=== PATIENT | female | born 1965 | race Hispanic/Latino ===

== ENCOUNTER → 2017-01-04 | Outpatient (CLI) | payer OTHER | END | disposition home or self-care (01) | LOC: LAB.O 15:05 | PROVIDERS: ATTEND Internal Medicine Rheumatology | DX: Z79.899 Other long term (current) drug therapy (principal); M32.10 Systemic lupus erythematosus, organ or system involvement unspecified ==

== ENCOUNTER 2017-02-26 06:30 | Emergency (ER) | payer OTHER ==
[2017-02-26 06:47] VITALS: TEMP 97.1
[2017-02-26] MEDS ORDERED: ONDANSETRON INJ 4 MG/2 ML VIAL IV ONE (06:51)
[2017-02-26] MEDS ORDERED: BUTORPHANOL TARTRATE 2 MG/ML VIAL IV ONE (06:51)
[2017-02-26] MEDS ORDERED: ONDANSETRON INJ 4 MG/2 ML VIAL ONE (06:53)
[2017-02-26] MEDS ORDERED: BUTORPHANOL TARTRATE 2 MG/ML VIAL ONE (06:54)
--- NOTE | 2017-02-26 07:15 | CT ---
Study: CT of the Head. Indication: severe headache Technique: Axial CT images of the head were acquired without intravenous contrast. Comparison: MRI brain May 30, 2011. Findings: No CT evidence of acute ischemia, acute hemorrhage, mass, mass effect, midline shift, or extra-axial fluid collection. Ventricles are normal in configuration without hydrocephalus. Brain parenchyma demonstrates a normal appearance for patient age. Paranasal sinuses are adequately aerated. Mastoid air cells are adequately aerated. Osseous structures and soft tissues are unremarkable. Impression: 1. No CT evidence of acute intracranial abnormality. Electronically signed by: Manav Cooper MD 02/26/2017 7:14 AM CDT
[2017-02-26] MEDS ORDERED: KETOROLAC TROMETHAMINE INJ 30 MG/ML VIAL IV ONE (07:19)
[2017-02-26] MEDS ORDERED: diazePAM 5 MG TAB PO ONE (07:19)
[2017-02-26] MEDS ORDERED: methylPREDNISolone SODIUM SUC 125 MG/2 ML VIAL IV ONE (07:19)
[2017-02-26] MEDS ORDERED: SODIUM CHLORIDE 0.9% 1000ML 1,000 ML IVS ONE (07:19)
[2017-02-26] MEDS: DULoxetine HCL 30 MG CAP PO ONE (07:35)
--- NOTE | 2017-02-26 11:35 | ED.PDOC ---
History of Present Illness - General Chief Complaint: Headache Stated Complaint: severe headache Time Seen by Provider: 02/26/17 06:59 Source: patient, family Exam Limitations: no limitations - History of Present Illness Initial Comments: The patient is a 51-year-old female presenting to the emergency room secondary to a headache that started abruptly approximately 36 hours after running out of her Cymbalta. The patient did become dizzy with a headache. The headache continued and was moderate for the next 36 hours and then this morning around 5 AM it started getting worse. She does have a history of migraine headaches. This pattern is similar to her previous migraine headaches but the intensity is worse. No fevers. No rash. No cough. No sore throat. No shortness of breath. Mild nausea but no vomiting. No diarrhea. No vision changes but she does have some mild photophobia. No altered mental status. No hearing changes. Taste changes. No focal neurological changes. No lethargy. The headache is diffuse. Technically her Kernig and Brudzinski signs are negative. She does however have some stiffness of the most proximal cervical spine muscles that does extend into the muscles surrounding her scalp. No specific pain over the temporal arteries. She reports that the headache is pounding. She is alert and oriented 4. Severity: moderate Improving Factors: nothing Worsening Factors: movement Associated Symptoms: loss of appetite, malaise, nausea/vomiting Allergies/Adverse Reactions: Allergies Aspirin Allergy (Verified 03/26/15 15:02) Home Medications: Ambulatory Orders Cholecalciferol [Vitamin D3] 5,000 unit PO DAILY 03/26/15 Ergocalciferol [Vitamin D] 50,000 unit PO ONCE 03/26/15 Hydroxychloroquine [Plaquenil] 200 mg PO BID 03/26/15 Methotrexate Sodium [Methotrexate] 10 tbls PO WKLY 03/26/15 Duloxetine HCl [Cymbalta] 60 mg PO AC 02/26/17 Folic Acid 2 mg PO AC 02/26/17 Hydrochlorothiazide 12.5 mg PO AC 02/26/17 Metformin HCl 500 mg PO AC 02/26/17 Review of Systems - Review of Systems Constitutional: States: malaise EENTM: States: blurred vision - along with her photophobia Respiratory: States: no symptoms reported Cardiology: States: no symptoms reported Gastrointestinal/Abdominal: States: nausea Genitourinary: States: no symptoms reported Musculoskeletal: States: neck pain - muscle stiffness. Denies: back pain Skin: States: no symptoms reported Neurological: States: anxiety, emotional problems, headache. Denies: numbness, paresthesia, seizure, tingling, tremors, weakness Endocrine: Denies: excessive sweating, intolerance to cold, intolerance to heat , increased thirst, increased urine, unexplained weight gain Hematologic/Lymphatic: States: no symptoms reported All other Systems: No Change from Baseline Past Medical History (General) - Patient Medical History Hx Seizures: No Hx Stroke: No Hx Dementia: No Hx Asthma: No Hx of COPD: No Hx Cardiac Disorders: No Hx Congestive Heart Failure: No Hx Pacemaker: No Hx Hypertension: Yes Hx Thyroid Disease: No Hx Diabetes: Yes Hx Gastroesophageal Reflux: No Hx Renal Disease: No Hx Cancer: No Hx of HIV: No Hx Hepatitis C: No Hx MRSA: No Surgical History: other - Vaccination History Hx Tetanus, Diphtheria Vaccination: No Hx Influenza Vaccination: No Hx Pneumococcal Vaccination: No Immunizations Up to Date: No - unknown - Social History Hx Tobacco Use: No Hx Chewing Tobacco Use: No Hx Alcohol Use: No Hx Substance Use: No Hx Substance Use Treatment: No Hx Depression: No Feels Threatened In Home Enviroment: No Feels Threatened In a Relationship: No Hx Physical Abuse: No Hx Emotional Abuse: No Hx Suspected Abuse: No - Female History Patient : No Family Medical History - Family History Mother Family History: Unknown Physical Exam - Physical Exam General Appearance: Alert, Anxious, Obvious distress Eye Exam: bilateral normal Ears, Nose, Throat: normal ENT inspection, normal pharynx Neck: full range of motion, other - see history of present illness Respiratory: chest non-tender, lungs clear, normal breath sounds, no respiratory distress, no accessory muscle use Cardiovascular/Chest: normal peripheral pulses, regular rate, rhythm, no edema Peripheral Pulses: radial,right: 2+, radial,left: 2+, dorsalis pedis,right: 2+, dorsalis pedis,left: 2+ Gastrointestinal/Abdominal: normal bowel sounds, non tender, soft Rectal Exam: deferred Back Exam: normal inspection, no CVA tenderness, no vertebral tenderness Extremity: normal range of motion, non-tender, normal inspection, no pedal edema , no calf tenderness, normal capillary refill 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, no motor/sensory deficits, alert, oriented x 3, other - see history of present illness Skin Exam: normal color Comments: Vital Signs - 24 hr 02/26/17 02/26/17 02/26/17 06:35 06:42 07:42 Temperature 97.1 F L Pulse Rate [ 75 78 monitor] Respiratory 22 22 22 Rate Blood Pressure 146/81 131/89 [Left Arm] O2 Sat by Pulse 100 98 Oximetry 02/26/17 02/26/17 08:44 10:12 Temperature Pulse Rate [ 78 77 monitor] Respiratory 14 16 Rate Blood Pressure 126/72 [Left Arm] O2 Sat by Pulse 92 L Oximetry Progress - Progress Progress: 02/26/17 11:38 the patient is a 51-year-old female presenting to the emergency room secondary to a headache of several days' duration. Laboratory work is reassuring. She was given a dose of Solu-Medrol as she has been out of her lupus medication for a few days. She was also given a muscle relaxer and the dose of her Cymbalta. She was also given a liter of IV fluids. She was given 1 dose of Toradol. Headache has improved significantly. I believe the headache is primarily due to Cymbalta discontinuation syndrome. Given her constellation of symptoms and temporal relation to running out of her medications, this is the most likely explanation for her headache. She needs to get her medications refilled. Her next Cymbalta dose is due tomorrow. If symptoms change for the worse in any way then she is to return here for further workup including lumbar puncture. Strict ER warnings were given. Keep well- hydrated. Follow up with her primary care doctor later in the week. - Results/Orders Results/Orders: Laboratory Tests 02/26/17 06:55 WBC 6.4 RBC 4.43 Hgb 13.9 Hct 41.6 MCV 93.9 MCH 31.4 H MCHC 33.5 RDW 14.5 Plt Count 227 MPV 8.8 Absolute Neuts (auto) 2.60 Absolute Lymphs (auto) 3.00 Absolute Monos (auto) 0.60 Absolute Eos (auto) 0.10 Absolute Basos (auto) 0.10 Neutrophils % 40.6 L Lymphocytes % 46.7 Monocytes % 9.7 H Eosinophils % 2.0 Basophils % 1.0 ESR 23 Sodium 139 Potassium 3.8 Chloride 108 Carbon Dioxide 21 Anion Gap 13.8 BUN 24 H Creatinine 0.71 BUN/Creatinine Ratio 33.8 H Random Glucose 113 H Serum Osmolality 282.4 Calcium 9.1 Total Bilirubin 0.7 AST 27 ALT 30 Alkaline Phosphatase 69 Serum Total Protein 7.5 Albumin 4.2 Globulin 3.3 Albumin/Globulin Ratio 1.[address] shows no acute pathology. No evidence of hydrocephalus or intracranial hemorrhage. No obvious mass. No significant sinusitis. 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 Copy, Patient Portal Self Enrollment Instructions: DI for Headache Diet: diabetic diet Activity: increase activity as tolerated Referrals: LYNNETTE JAMES [Primary Care Provider] - 1-2 Days Home Medications: Ambulatory Orders Cholecalciferol [Vitamin D3] 5,000 unit PO DAILY 03/26/15 Ergocalciferol [Vitamin D] 50,000 unit PO ONCE 03/26/15 Hydroxychloroquine [Plaquenil] 200 mg PO BID 03/26/15 Methotrexate Sodium [Methotrexate] 10 tbls PO WKLY 03/26/15 Duloxetine HCl [Cymbalta] 60 mg PO AC 02/26/17 Folic Acid 2 mg PO AC 02/26/17 Hydrochlorothiazide 12.5 mg PO AC 02/26/17 Metformin HCl 500 mg PO AC 02/26/17 Additional Instructions: the patient is a 51-year-old female presenting to the emergency room secondary to a headache of several days' duration. Laboratory work is reassuring. She was given a dose of Solu-Medrol as she has been out of her lupus medication for a few days. She was also given a muscle relaxer and the dose of her Cymbalta. She was also given a liter of IV fluids. She was given 1 dose of Toradol. Headache has improved significantly. I believe the headache is primarily due to Cymbalta discontinuation syndrome. Given her constellation of symptoms and temporal relation to running out of her medications, this is the most likely explanation for her headache. She needs to get her medications refilled. Her next Cymbalta dose is due tomorrow. If symptoms change for the worse in any way then she is to return here for further workup including lumbar puncture. Strict ER warnings were given. Keep well- hydrated. Follow up with her primary care doctor later in the week.
[2017-02-26 12:40] VITALS: BP 126/82; O2SAT 98
== END 2017-02-26 12:02 | disposition home or self-care (01) ==
LOC: ER 06:30
DX: F13.239 Sedative, hypnotic or anxiolytic dependence with withdrawal, unspecified (principal); I10 Essential (primary) hypertension; M32.9 Systemic lupus erythematosus, unspecified; E11.9 Type 2 diabetes mellitus without complications; Z79.899 Other long term (current) drug therapy
CPT/HCPCS: 70450; 80053; 85025; 85651; J0595; J1885; J2405; J2930; J7030

== ENCOUNTER → 2017-05-11 | Outpatient (CLI) | payer OTHER | END | disposition home or self-care (01) | LOC: LAB.O 15:05 | PROVIDERS: ATTEND Internal Medicine Rheumatology | DX: Z79.899 Other long term (current) drug therapy (principal); M79.7 Fibromyalgia; M79.1 Myalgia; M32.10 Systemic lupus erythematosus, organ or system involvement unspecified ==

== ENCOUNTER → 2017-06-05 | Outpatient (CLI) | payer OTHER | END | disposition home or self-care (01) | LOC: LAB.O 16:15 | PROVIDERS: ATTEND Internal Medicine Rheumatology | DX: R79.89 Other specified abnormal findings of blood chemistry (principal); M79.7 Fibromyalgia; M32.10 Systemic lupus erythematosus, organ or system involvement unspecified ==

== ENCOUNTER → 2017-06-27 | Outpatient (CLI) | payer OTHER | END | disposition home or self-care (01) | LOC: LAB.O 16:43 | PROVIDERS: ATTEND Internal Medicine Rheumatology | DX: Z79.899 Other long term (current) drug therapy (principal); R82.99 Other abnormal findings in urine; M32.10 Systemic lupus erythematosus, organ or system involvement unspecified ==

== ENCOUNTER → 2017-10-09 | Outpatient (CLI) | payer OTHER ==
--- NOTE | 2017-10-11 11:49 | MAM ---
EXAM DESCRIPTION: 3D Screening BILATERAL : Digital Mammography. CLINICAL HISTORY: 52 years Female SCREENING no complaints. No family history of breast cancer. Hysterectomy. HRT more than 5 years ago.. COMPARISON: 2-D digital screening bilateral studies 09/25/2016 and 09/17/2014. Report from prior examination also reviewed. TECHNIQUE: Bilateral CC and MLO projection full-field images, 3-D tomosynthesis digital mammographic technique. Also bilateral synthesized CC/ MLO full-field images. CAD not utilized. FINDINGS: The breast parenchymal density pattern is: Scattered areas of fibroglandular density. No skin thickening or nipple retraction bilateral solitary parenchymal calcifications. Bilateral basilar calcifications. Intramammary lymph node on the right. No focal, stellate mass or density, focal asymmetry , and no suspicious microcalcifications bilaterally. Stable mammograms compared to prior studies, taking into account differences in mammographic technique IMPRESSION: BI-RADS CATEGORY: 2 - BENIGN FINDINGS. FOLLOW UP: Routine digital bilateral screening, one year interval from September 2017. Written communication explaining the IMPRESSION and follow-up, will be mailed to the patient and referring health care provider. According to the [employer], yearly mammograms are recommended starting at age 40 and continuing as long as a woman is in good health. Any breast change noted on a breast self-exam should be reported promptly to the patient's healthcare provider. Breast MRI is recommended for women with an approximately 20-25% or greater lifetime risk of breast cancer, including women with a strong family history of breast or ovarian cancer and women who have been treated for Hodgkin's disease. A negative mammographic report should not delay tissue diagnosis in patients with significant clinical history or physical findings. Extremely dense breast tissue limits the sensitivity of digital mammography. Electronically signed by: Edwin Quinones MD 10/11/2017 11:47 AM [facility]
== END | disposition home or self-care (01) ==
LOC: MAMMO 15:02
PROVIDERS: ATTEND Internal Medicine Rheumatology
DX: Z12.31 Encounter for screening mammogram for malignant neoplasm of breast (principal); M79.7 Fibromyalgia; Z79.899 Other long term (current) drug therapy; M32.10 Systemic lupus erythematosus, organ or system involvement unspecified
CPT/HCPCS: 36415; 77063; 80053; 81001; 85025; 85651; 86160; 86225; G0202

== ENCOUNTER → 2018-01-11 | Outpatient (CLI) | payer OTHER | LOC: LAB.O 16:23 | PROVIDERS: ATTEND Internal Medicine Rheumatology | DX: M32.10 Systemic lupus erythematosus, organ or system involvement unspecified (principal); R79.89 Other specified abnormal findings of blood chemistry; Z79.899 Other long term (current) drug therapy ==

== ENCOUNTER 2018-01-20 12:46 | Emergency (ER) | payer OTHER ==
[2018-01-20 13:03] VITALS: TEMP 98.7; O2SAT 97
--- NOTE | 2018-01-20 13:21 | ED.PDOC ---
History of Present Illness - General Chief Complaint: Blood Pressure Problem Stated Complaint: dizziness,elevated BP,right arm tingling Time Seen by Provider: 01/20/18 13:17 Source: patient, RN notes reviewed Additional Information: 52 YEAR OLD FEMALE WITH KNOWN HISTORY OF LUPUS HYPERTENSION TYPE II DM PRESENTS WITH COMPLAINTS OF DIZZINESS ( HER DISCRIPTION IS CONSISTANT WITH VERTIGO ) SHE HAS BEEN OUT OF HER MEDICATIONS FOR A WEEK SHE TAKES HCTZ FOR HYPERTENSION AND TYPE 11 DM CONTROLLED ON DIET SHE HAS NO HISTORY OF DISLIPIDEMIA NO FAMILY HISTORY OF CAD - History of Present Illness Timing/Duration: 24 hours Severity: moderate Improving Factors: nothing Worsening Factors: movement Associated Symptoms: denies symptoms Allergies/Adverse Reactions: Allergies Aspirin Allergy (Verified 03/26/15 15:02) Home Medications: Ambulatory Orders Hydroxychloroquine [Plaquenil] 200 mg PO BID 03/26/15 Methotrexate Sodium [Methotrexate] 10 tbls PO WKLY 03/26/15 Duloxetine HCl [Cymbalta] 60 mg PO AC 02/26/17 Folic Acid 2 mg PO AC 02/26/17 Hydrochlorothiazide 12.5 mg PO AC 02/26/17 Meclizine HCl [Antivert] 12.5 mg PO Q8HRS #30 tab 01/20/18 Review of Systems - Review of Systems Constitutional: States: no symptoms reported EENTM: States: no symptoms reported Respiratory: States: no symptoms reported Cardiology: States: no symptoms reported Gastrointestinal/Abdominal: States: no symptoms reported Genitourinary: States: no symptoms reported Musculoskeletal: States: no symptoms reported Skin: States: no symptoms reported Neurological: States: no symptoms reported Endocrine: States: no symptoms reported Past Medical History (General) - Patient Medical History Hx Seizures: No Hx Stroke: No Hx Dementia: No Hx Asthma: No Hx of COPD: No Hx Cardiac Disorders: No Hx Congestive Heart Failure: No Hx Pacemaker: No Hx Hypertension: Yes Hx Thyroid Disease: No Hx Diabetes: No Hx Gastroesophageal Reflux: No Hx Renal Disease: No Hx Cancer: No Hx of HIV: No Hx Hepatitis C: No Hx MRSA: No Surgical History: Hysterectomy - Vaccination History Hx Tetanus, Diphtheria Vaccination: No Hx Influenza Vaccination: No Hx Pneumococcal Vaccination: No - Social History Hx Tobacco Use: No Hx Chewing Tobacco Use: No Hx Alcohol Use: No Hx Substance Use: No Hx Substance Use Treatment: No Hx Depression: Yes Hx Physical Abuse: No Hx Emotional Abuse: No Hx Suspected Abuse: No - Female History Patient is a Female of Child Bearing Age (10 -59 yrs old): No Patient : No Family Medical History - Family History Mother Family History: Unknown Physical Exam - Physical Exam General Appearance: Alert Eye Exam: bilateral normal Ears, Nose, Throat: hearing grossly normal, normal ENT inspection, normal pharynx Neck: non-tender, full range of motion, supple Respiratory: chest non-tender, lungs clear, normal breath sounds, no respiratory distress Gastrointestinal/Abdominal: normal bowel sounds, non tender, soft, no organomegaly, no pulsatile mass Extremity: normal range of motion, non-tender Progress - Progress Progress: 01/20/18 15:50 Laboratory Tests 01/20/18 01/20/18 13:36 14:50 WBC 5.3 RBC 4.93 Hgb 14.9 Hct 43.7 MCV 88.6 MCH 30.2 MCHC 34.1 RDW 13.4 Plt Count 225 MPV 8.1 Absolute Neuts (auto) 2.40 Absolute Lymphs (auto) 2.00 Absolute Monos (auto) 0.60 Absolute Eos (auto) 0.20 Absolute Basos (auto) 0.00 Neutrophils % 45.1 Lymphocytes % 38.4 Monocytes % 12.0 H Eosinophils % 3.6 Basophils % 0.9 PT 11.0 INR 0.970 PTT (SP) 28.8 Sodium 139 Potassium 3.6 Chloride 102 Carbon Dioxide 24 Anion Gap 16.6 BUN 18 Creatinine 0.65 BUN/Creatinine Ratio 27.7 H Random Glucose 103 Serum Osmolality 279.7 Calcium 9.6 Magnesium 2.2 Creatine Kinase 78 CK-MB (CK-2) 1.1 CK-MB (CK-2) % Not Reportable Troponin I < 0.02 Urine Color Yellow Urine Appearance Clear Urine pH 6.0 Ur Specific [place] 1.015 Urine Protein Negative Urine Glucose (UA) Negative Urine Ketones Negative Urine Blood Trace-lysed H Urine Nitrite Negative Urine Bilirubin Negative Urine Urobilinogen 0.2 Ur Leukocyte Esterase Small H Urine RBC 0-1 Urine WBC 3-5 H Ur Epithelial Cells 3-5 Urine Bacteria Rare - EKG/XRAY/CT EKG: Sinus Comments: NSR 62 / MIN NO ST T CHANGES Departure - Departure Clinical Impression: Hypertension, Vertigo, Lupus Time of Disposition: 15:52 Disposition: Discharge to Home or Self Care Condition: Good Departure Forms: ED Discharge - Pt. Copy, Patient Portal Self Enrollment Instructions: DI for High Blood Pressure Referrals: JAN WOODARD [Primary Care Provider] - 1-2 Weeks Prescriptions: Meclizine HCl [Antivert] 12.5 mg PO Q8HRS #30 tab Home Medications: Ambulatory Orders Hydroxychloroquine [Plaquenil] 200 mg PO BID 03/26/15 Methotrexate Sodium [Methotrexate] 10 tbls PO WKLY 03/26/15 Duloxetine HCl [Cymbalta] 60 mg PO AC 02/26/17 Folic Acid 2 mg PO AC 02/26/17 Hydrochlorothiazide 12.5 mg PO AC 02/26/17 Meclizine HCl [Antivert] 12.5 mg PO Q8HRS #30 tab 01/20/18
--- NOTE | 2018-01-20 14:22 | RAD ---
EXAM DESCRIPTION: Chest,1 View CLINICAL HISTORY: CP COMPARISON: March 26, 2015 FINDINGS: Cardiac silhouette is within normal limits. There is no focal parenchymal or pleural disease. There is an acute versus subacute fracture of the posterior sixth right posterior rib. IMPRESSION: Acute versus subacute fracture of the posterior sixth right rib. Electronically signed by: Samuel Edmond MD 01/20/2018 2:22 PM [facility]
[2018-01-20 16:26] VITALS: BP 129/83
== END 2018-01-20 16:20 | disposition home or self-care (01) ==
LOC: ER 12:46
DX: I10 Essential (primary) hypertension (principal); R55 Syncope and collapse; M32.9 Systemic lupus erythematosus, unspecified; E11.9 Type 2 diabetes mellitus without complications

== ENCOUNTER → 2018-02-22 | Outpatient (CLI) | payer OTHER | LOC: LAB.O 09:20 | PROVIDERS: ATTEND Internal Medicine Rheumatology | DX: M79.7 Fibromyalgia (principal); M32.10 Systemic lupus erythematosus, organ or system involvement unspecified; Z79.899 Other long term (current) drug therapy ==

== ENCOUNTER → 2018-05-06 | Outpatient (CLI) | payer OTHER | LOC: LAB.O 13:58 | PROVIDERS: ATTEND Internal Medicine Rheumatology | DX: R79.89 Other specified abnormal findings of blood chemistry (principal); M32.10 Systemic lupus erythematosus, organ or system involvement unspecified; Z79.899 Other long term (current) drug therapy ==

== ENCOUNTER → 2018-06-11 | Outpatient (CLI) | payer OTHER | LOC: LAB.O 12:35 | PROVIDERS: ATTEND Internal Medicine Rheumatology | DX: M32.10 Systemic lupus erythematosus, organ or system involvement unspecified (principal); Z79.899 Other long term (current) drug therapy ==

== ENCOUNTER → 2018-06-19 | Outpatient (CLI) | payer OTHER | LOC: GMAE 10:44 | PROVIDERS: ATTEND Family Medicine | DX: E05.90 Thyrotoxicosis, unspecified without thyrotoxic crisis or storm (principal) ==

== ENCOUNTER → 2018-06-24 | Outpatient (CLI) | payer OTHER | LOC: GMALS 17:35 | PROVIDERS: ATTEND Nurse Practitioner Acute Care | DX: R60.0 Localized edema (principal) ==

== ENCOUNTER 2018-06-26 17:23 | Emergency (ER) | payer OTHER ==
[2018-06-26] MEDS ORDERED: SODIUM CHLORIDE 0.9% 1000ML 1,000 ML IVS ONE (18:34)
--- NOTE | 2018-06-26 18:39 | RAD ---
PROCEDURE: XR CHEST 1 VIEW HISTORY: shakiness, weakness COMPARISON: 01/20/2018 TECHNIQUE: Single projection of the chest was done. FINDINGS: The lung valentin are well inflated . There are no discrete airspace infiltrates, pneumothoraces or pleural effusions. The pulmonary vascularity is normal. The cardiomediastinal silhouette is unremarkable for patient's age and sex. IMPRESSION: There is no acute pleural-parenchymal process seen in the imaged lung valentin. Location of Interpretation: [facility] Electronically signed by: Walker Cai MD 06/26/2018 6:38 PM CDT Workstation: [id number]
--- NOTE | 2018-06-26 19:29 | ED.PDOC ---
History of Present Illness - General Chief Complaint: Blood Pressure Problem Time Seen by Provider: 06/26/18 17:24 Source: patient Exam Limitations: no limitations - History of Present Illness Initial Comments: The patient is a 52-year-old female presenting to emergency room secondary to intermittent tremors as well as some mild generalized weakness. She has been having some flushing episodes. No significant weight loss. No nausea or vomiting. No chest pain or shortness of breath. No neck pain. No hoarseness. No fevers. No recent medication changes. Timing/Duration: unsure Severity: moderate Improving Factors: nothing Worsening Factors: nothing Associated Symptoms: weakness Allergies/Adverse Reactions: Allergies Aspirin Allergy (Verified 03/26/15 15:02) Home Medications: Ambulatory Orders Hydroxychloroquine [Plaquenil] 200 mg PO BID 03/26/15 Methotrexate Sodium [Methotrexate] 10 tbls PO WKLY 03/26/15 Duloxetine HCl [Cymbalta] 60 mg PO AC 02/26/17 Folic Acid 2 mg PO AC 02/26/17 Hydrochlorothiazide 12.5 mg PO AC 02/26/17 Meclizine HCl [Antivert] 12.5 mg PO Q8HRS #30 tab 01/20/18 Review of Systems - Review of Systems Constitutional: States: malaise, weakness EENTM: States: no symptoms reported Respiratory: States: no symptoms reported Cardiology: States: no symptoms reported. Denies: palpitations Gastrointestinal/Abdominal: States: nausea - very mild Genitourinary: States: no symptoms reported Musculoskeletal: States: no symptoms reported Skin: States: no symptoms reported Neurological: States: anxiety, tremors Endocrine: States: no symptoms reported All other Systems: No Change from Baseline Past Medical History (General) - Patient Medical History Hx Seizures: No Hx Stroke: No Hx Dementia: No Hx Asthma: No Hx of COPD: No Hx Cardiac Disorders: No Hx Congestive Heart Failure: No Hx Pacemaker: No Hx Hypertension: Yes Hx Thyroid Disease: No Hx Diabetes: No Hx Gastroesophageal Reflux: No Hx Renal Disease: No Hx Cancer: No Hx of HIV: No Hx Hepatitis C: No Hx MRSA: No Surgical History: no surgical history - Vaccination History Hx Tetanus, Diphtheria Vaccination: No Hx Influenza Vaccination: No Hx Pneumococcal Vaccination: No Immunizations Up to Date: No - Social History Hx Tobacco Use: No Hx Chewing Tobacco Use: No Hx Alcohol Use: No Hx Substance Use: No Hx Substance Use Treatment: No Hx Depression: Yes Feels Threatened In Home Enviroment: No Feels Threatened In a Relationship: No Hx Physical Abuse: No Hx Emotional Abuse: No Hx Suspected Abuse: No - Activities of Daily Living Hospice Agency (if applicable):: None - Female History Patient is a Female of Child Bearing Age (10 -59 yrs old): No Patient : No Family Medical History - Family History Mother Family History: Unknown Physical Exam - Physical Exam General Appearance: Alert, Anxious, No apparent distress Eye Exam: bilateral normal Ears, Nose, Throat: hearing grossly normal, normal ENT inspection, normal pharynx Neck: non-tender, full range of motion, supple Respiratory: lungs clear, normal breath sounds, no respiratory distress, no accessory muscle use Cardiovascular/Chest: normal peripheral pulses, regular rate, rhythm, no edema Peripheral Pulses: radial,right: 2+, radial,left: 2+, dorsalis pedis,right: 2+, dorsalis pedis,left: 2+ Gastrointestinal/Abdominal: non tender, soft Rectal Exam: deferred Back Exam: normal inspection, no CVA tenderness, no vertebral tenderness Extremity: normal range of motion, non-tender, normal inspection, no pedal edema , normal capillary refill 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 This is likely due to her recent diagnosis of hyperthyroidism that appears to be fairly mild at this point. Is likely compounded by some mild hypercalcemia. She is going to discontinue her hydrochlorothiazide at this time. She needs to have a repeat thyroid function test next week to see if her thyroid hormones are rising. If they are and she continues to exhibit an increasing frequency of symptoms then it may be worth going ahead and starting a medication such as PTU or methimazole to help improve the problem. Ideally she would see endocrinology and have a full workup before this was done but this may not be feasible. No evidence of arrhythmia or congestive heart failure. No altered mental status. She needs to follow back up with her primary care doctor towards the middle of next week. ER warnings were given. No evidence of infection was found at this time. - Results/Orders Results/Orders: Laboratory Tests 06/26/18 06/26/18 06/26/18 17:49 17:58 17:58 WBC 5.3 RBC 4.64 Hgb 12.8 Hct 38.4 MCV 82.7 MCH 27.5 MCHC 33.3 RDW 13.6 Plt Count 184 MPV 8.6 Absolute Neuts (auto) 2.70 Absolute Lymphs (auto) 1.50 Absolute Monos (auto) 0.90 H Absolute Eos (auto) 0.10 Absolute Basos (auto) 0.00 Neutrophils % 51.2 Lymphocytes % 28.7 Monocytes % 16.7 H Eosinophils % 2.6 Basophils % 0.8 Sodium 140 Potassium 4.0 Chloride 102 Carbon Dioxide 27 Anion Gap 15.0 BUN 12 Creatinine 0.47 L BUN/Creatinine Ratio 25.5 H POC Glucose 115 H Random Glucose 130 H Serum Osmolality 280.9 Lactic Acid Calcium 10.5 H Magnesium 2.0 Total Bilirubin 0.5 AST 24 ALT 27 Alkaline Phosphatase 90 Creatine Kinase 42 CK-MB (CK-2) 0.8 CK-MB (CK-2) % Not Reportable Troponin I < 0.02 B-Natriuretic Peptide 23.2 Serum Total Protein 8.0 Albumin 3.9 Globulin 4.1 H Albumin/Globulin Ratio 1.0 L Amylase 46 Lipase 28 TSH < 0.06 L Urine Color Urine Appearance Urine pH Ur Specific [place] Urine Protein Urine Glucose (UA) Urine Ketones Urine Blood Urine Nitrite Urine Bilirubin Urine Urobilinogen Ur Leukocyte Esterase Urine RBC Urine WBC Ur Epithelial Cells Urine Bacteria 06/26/18 06/26/18 17:58 18:12 WBC RBC Hgb Hct MCV MCH MCHC RDW Plt Count MPV Absolute Neuts (auto) Absolute Lymphs (auto) Absolute Monos (auto) Absolute Eos (auto) Absolute Basos (auto) Neutrophils % Lymphocytes % Monocytes % Eosinophils % Basophils % Sodium Potassium Chloride Carbon Dioxide Anion Gap BUN Creatinine BUN/Creatinine Ratio POC Glucose Random Glucose Serum Osmolality Lactic Acid 1.2 Calcium Magnesium Total Bilirubin AST ALT Alkaline Phosphatase Creatine Kinase CK-MB (CK-2) CK-MB (CK-2) % Troponin I B-Natriuretic Peptide Serum Total Protein Albumin Globulin Albumin/Globulin Ratio Amylase Lipase TSH Urine Color Yellow Urine Appearance Clear Urine pH 7.0 Ur Specific [place] 1.010 Urine Protein Negative Urine Glucose (UA) Negative Urine Ketones Negative Urine Blood Negative Urine Nitrite Negative Urine Bilirubin Negative Urine Urobilinogen 0.2 Ur Leukocyte Esterase Negative Urine RBC 0 Urine WBC 0-1 Ur Epithelial Cells 0-1 Urine Bacteria 0 chest x-ray shows no acute pathology. - EKG/XRAY/CT CT Ordered: No CT Interpretation Call Back: No Departure - Departure Clinical Impression: Hyperthyroidism, Hypercalcemia Disposition: Discharge to Home or Self Care Condition: Fair Departure Forms: ED Discharge - Pt. Copy, Patient Portal Self Enrollment Instructions: Hyperthyroidism (Overactive Thyroid) (DC), Hypercalcemia (DC) Diet: diabetic diet Activity: increase activity as tolerated Referrals: JAN HURTADO MD [Primary Care Provider] - 1-2 Weeks Home Medications: Ambulatory Orders Hydroxychloroquine [Plaquenil] 200 mg PO BID 03/26/15 Methotrexate Sodium [Methotrexate] 10 tbls PO WKLY 03/26/15 Duloxetine HCl [Cymbalta] 60 mg PO AC 02/26/17 Folic Acid 2 mg PO AC 02/26/17 Hydrochlorothiazide 12.5 mg PO AC 02/26/17 Meclizine HCl [Antivert] 12.5 mg PO Q8HRS #30 tab 01/20/18 Additional Instructions: the patient is a 52-year-old female presenting to emergency room secondary to some intermittent tremors and mild weakness. This is likely due to her recent diagnosis of hyperthyroidism that appears to be fairly mild at this point. Is likely compounded by some mild hypercalcemia. She is going to discontinue her hydrochlorothiazide at this time. She needs to have a repeat thyroid function test next week to see if her thyroid hormones are rising. If they are and she continues to exhibit an increasing frequency of symptoms then it may be worth going ahead and starting a medication such as PTU or methimazole to help improve the problem. Ideally she would see endocrinology and have a full workup before this was done but this may not be feasible. No evidence of arrhythmia or congestive heart failure. No altered mental status. She needs to follow back up with her primary care doctor towards the middle of next week. ER warnings were given. No evidence of infection was found at this time.
[2018-06-26 19:30] VITALS: O2SAT 100
[2018-06-26 20:00] VITALS: BP 143/64; TEMP 98.4
== END 2018-06-26 20:01 | disposition home or self-care (01) ==
LOC: ER 17:23
DX: E05.90 Thyrotoxicosis, unspecified without thyrotoxic crisis or storm (principal); E83.52 Hypercalcemia; I10 Essential (primary) hypertension; Z88.6 Allergy status to analgesic agent; Z79.899 Other long term (current) drug therapy

== ENCOUNTER → 2018-07-22 | Outpatient (CLI) | payer OTHER | LOC: LAB.O 15:04 | PROVIDERS: ATTEND Internal Medicine Endocrinology, Diabetes & Metabolism | DX: E05.90 Thyrotoxicosis, unspecified without thyrotoxic crisis or storm (principal) ==

== ENCOUNTER → 2018-09-09 | Outpatient (CLI) | payer OTHER | LOC: LAB.O 12:46 | PROVIDERS: ATTEND Internal Medicine Endocrinology, Diabetes & Metabolism | DX: E04.1 Nontoxic single thyroid nodule (principal); E04.9 Nontoxic goiter, unspecified; E05.90 Thyrotoxicosis, unspecified without thyrotoxic crisis or storm; E11.9 Type 2 diabetes mellitus without complications ==

== ENCOUNTER → 2018-11-07 | Outpatient (CLI) | payer OTHER | LOC: LAB.O 14:22 | PROVIDERS: ATTEND Internal Medicine Endocrinology, Diabetes & Metabolism | DX: E04.9 Nontoxic goiter, unspecified (principal); E05.90 Thyrotoxicosis, unspecified without thyrotoxic crisis or storm; E11.9 Type 2 diabetes mellitus without complications; M32.10 Systemic lupus erythematosus, organ or system involvement unspecified; R79.89 Other specified abnormal findings of blood chemistry; Z79.899 Other long term (current) drug therapy ==

== ENCOUNTER → 2019-03-06 | Outpatient (CLI) | payer OTHER | LOC: LAB.O 16:25 | PROVIDERS: ATTEND Internal Medicine Endocrinology, Diabetes & Metabolism | DX: E04.9 Nontoxic goiter, unspecified (principal); E05.90 Thyrotoxicosis, unspecified without thyrotoxic crisis or storm ==

== ENCOUNTER → 2019-07-04 | Outpatient (CLI) | payer OTHER | LOC: LAB.O 13:12 | PROVIDERS: ATTEND Internal Medicine Endocrinology, Diabetes & Metabolism | DX: E05.90 Thyrotoxicosis, unspecified without thyrotoxic crisis or storm (principal); E04.1 Nontoxic single thyroid nodule; E04.9 Nontoxic goiter, unspecified; E11.9 Type 2 diabetes mellitus without complications; Z79.899 Other long term (current) drug therapy ==

== ENCOUNTER → 2019-11-11 | Outpatient (CLI) | payer OTHER ==
--- NOTE | 2019-11-14 14:50 | MAM ---
EXAM DESCRIPTION: 3D Screening BILATERAL : Digital Mammography. CLINICAL HISTORY: 54 years Female SCREENING . No complaints. No personal or family history of breast cancer. Menarche age 10. Childbirth age 15. Premenopausal. No HRT. Lifetime risk of developing breast cancer (Tyrer-Cuzick model)(%): 7.6. COMPARISON: Bilateral screening digital breast tomosynthesis 07 November 2018 and 09 October 2017 TECHNIQUE: Bilateral CC and MLO projection full-field images, digital tomosynthesis mammographic technique. Bilateral digital 2-D full-field MLO images. CAD not available for tomosynthesis or 2-D images. FINDINGS: The breast parenchymal density pattern is: Scattered areas of fibroglandular density. No skin thickening or nipple retraction. Bilateral vascular calcifications. Bilateral solitary microcalcifications. Right axillary lymph node. No new focal, stellate mass or density, focal asymmetry , and no suspicious microcalcifications bilaterally. Stable mammograms compared to prior study. IMPRESSION: Benign exam. BIRAD CATEGORY: 2 BENIGN FINDINGS. RECOMMENDATIONS: FOLLOW UP: Routine digital bilateral mammographic screening, one year interval from October 2019. Written communication explaining the IMPRESSION and follow-up, will be mailed to the patient and referring health care provider. According to the [employer], yearly mammograms are recommended starting at age 40 and continuing as long as a woman is in good health. Any breast change noted on a breast self-exam should be reported promptly to the patient's healthcare provider. Breast MRI is recommended for women with an approximately 20-25% or greater lifetime risk of breast cancer, including women with a strong family history of breast or ovarian cancer and women who have been treated for Hodgkin's disease. A negative mammographic report should not delay tissue diagnosis in patients with significant clinical history or physical findings. Extremely dense breast tissue limits the sensitivity of digital mammography. Electronically signed by: Edwin Quinones MD 11/14/2019 2:48 PM [employer]IL ENTRY CLERK
== END ==
LOC: MAMMO 15:24
PROVIDERS: ATTEND Family Medicine
DX: Z12.31 Encounter for screening mammogram for malignant neoplasm of breast (principal)

== ENCOUNTER → 2019-12-16 | Outpatient (CLI) | payer OTHER | LOC: LAB.O 14:21 | PROVIDERS: ATTEND Internal Medicine Endocrinology, Diabetes & Metabolism | DX: E05.90 Thyrotoxicosis, unspecified without thyrotoxic crisis or storm (principal); E04.1 Nontoxic single thyroid nodule; E04.9 Nontoxic goiter, unspecified; E11.9 Type 2 diabetes mellitus without complications ==

== ENCOUNTER 2020-01-09 07:53 | Emergency (ER) | payer OTHER ==
[2020-01-09] MEDS: IBUPROFEN 200 MG TAB PO ONE (08:12)
[2020-01-09] MEDS: diphenhydrAMINE HCL 25 MG CAP PO ONE (08:12)
[2020-01-09] MEDS: predniSONE 20 MG TAB PO ONE (08:12)
--- NOTE | 2020-01-09 08:47 | RAD ---
EXAM DESCRIPTION: Neck,Soft Tissue CLINICAL HISTORY: 54 years Female, acute hoarseness, uvulitis COMPARISON: None. Findings: Two views/radiographs The airway is midline and patent. Prevertebral soft tissues are unremarkable. The epiglottis is normal. Visualized lung apices are clear. No focal soft tissue swelling. Straightening of the normal cervical lordosis which is likely positional. No acute fracture or subluxation. IMPRESSION: Unremarkable radiographs. Electronically signed by: Karthik Ricardo MD 01/09/2020 8:45 AM [facility]
[2020-01-09] MEDS: PENICILLIN BENZATHINE 1.2 MU 1.2 MU/2 ML SYG IM ONE (09:21)
--- NOTE | 2020-01-09 09:21 | ED.PDOC ---
History of Present Illness - General Chief Complaint: General Stated Complaint: Sore throat, hoarse, pain/difficulty swallowing Time Seen by Provider: 01/09/20 07:55 Source: patient Exam Limitations: no limitations - History of Present Illness Initial Comments: The patient is a 54-year-old female presenting to the emergency room secondary to waking up with hoarseness and a feeling of a knot in the back of her throat. On examination she is indeed hoarse. She also has a significant uvulitis. Lungs are clear. No respiratory distress. No tripod positioning. She is able to lie back and breathe without difficulty. No definite fever. Symptoms started overnight. She does have a sore throat. Mild cough. No syncope. No headache. No altered mental status. No meningeal signs. Timing/Duration: 4-6 hours, constant, getting worse Severity: moderate Improving Factors: nothing Worsening Factors: nothing Associated Symptoms: cough, malaise Allergies/Adverse Reactions: Allergies Aspirin Allergy (Verified 01/09/20 08:24) Home Medications: Ambulatory Orders Duloxetine HCl [Cymbalta] 60 mg PO DAILY 02/26/17 Methimazole [Tapazole] 5 mg PO DAILY 01/09/20 levoFLOXacin [Levaquin] 500 mg PO DAILY #5 tab 01/09/20 Review of Systems - Review of Systems Constitutional: States: malaise EENTM: States: throat pain, other - See history of present illness Respiratory: States: cough Cardiology: States: no symptoms reported Gastrointestinal/Abdominal: States: no symptoms reported Genitourinary: States: no symptoms reported Musculoskeletal: States: no symptoms reported Skin: States: no symptoms reported Neurological: States: no symptoms reported Endocrine: States: no symptoms reported All other Systems: No Change from Baseline Past Medical History (General) - Patient Medical History Hx Seizures: No Hx Stroke: No Hx Dementia: No Hx Asthma: No Hx of COPD: No Hx Cardiac Disorders: No Hx Congestive Heart Failure: No Hx Pacemaker: No Hx Hypertension: No Hx Thyroid Disease: No Hx Diabetes: Yes Hx Gastroesophageal Reflux: No Hx Renal Disease: No Hx Cancer: No Hx of HIV: No Hx Hepatitis C: No Hx MRSA: No MRSA Source:: Wound - Vaccination History Hx Tetanus, Diphtheria Vaccination: No Hx Influenza Vaccination: No Hx Pneumococcal Vaccination: No - Social History Hx Tobacco Use: No Hx Chewing Tobacco Use: No Hx Alcohol Use: No Hx Substance Use: No Hx Substance Use Treatment: No Hx Depression: No Hx Physical Abuse: No Hx Emotional Abuse: No Hx Suspected Abuse: No - Female History Patient is a Female of Child Bearing Age (10 -59 yrs old): Yes Patient : Yes Family Medical History - Family History Mother Family History: Unknown Hx Family Diabetes: Yes Physical Exam - Physical Exam General Appearance: Alert, Comfortable, No apparent distress Eye Exam: bilateral normal Ears, Nose, Throat: hearing grossly normal, nasal congestion, pharyngeal erythema - The patient also has obvious uvulitis and laryngitis indicated by hoarseness. No blistering. 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 She did test positive for strep. She has been given a dose of Bicillin LA. I am also going to place the patient on 5 days of oral Levaquin in case there is a secondary infection of the bacterial nature behind this. She was given 1 dose of Motrin and oral prednisone as well as 1 dose of Benadryl. The patient is not having any difficulty with oxygenating. No acute distress at this time. She does need to follow her blood sugars in the light of current infection and the steroid dosage. A humidifier may prove beneficial. Motrin may also prove beneficial over the next couple of days to help reduce inflammation. ER warnings are given. Follow-up with primary care doctor as routine. mk harmon [id number] - Results/Orders Results/Orders: Laboratory Tests 01/09/20 08:15 Group A Strep Rapid Positive Rapid flu is negative. X-ray soft tissue of the neck shows no evidence of any acute pathology, no epiglottitis. - EKG/XRAY/CT CT Ordered: No Departure - Departure Clinical Impression: Laryngitis, Uvulitis, Strep throat Disposition: Discharge to Home or Self Care Condition: Fair Departure Forms: ED Discharge - Pt. Copy, Patient Portal Self Enrollment Instructions: Sore Throat, Adult (DC), Laryngitis (DC) Diet: regular diet Activity: increase activity as tolerated Referrals: JAN HURTADO MD [Primary Care Provider] - 1-2 Weeks Prescriptions: levoFLOXacin [Levaquin] 500 mg PO DAILY #5 tab Home Medications: Ambulatory Orders Duloxetine HCl [Cymbalta] 60 mg PO DAILY 02/26/17 Methimazole [Tapazole] 5 mg PO DAILY 01/09/20 levoFLOXacin [Levaquin] 500 mg PO DAILY #5 tab 01/09/20 Additional Instructions: The patient is a 54-year-old female presented to emergency room secondary to the overnight development of symptoms of pharyngitis including uvulitis and laryngitis. She did test positive for strep. She has been given a dose of Bicillin LA. I am also going to place the patient on 5 days of oral Levaquin in case there is a secondary infection of the bacterial nature behind this. She was given 1 dose of Motrin and oral prednisone as well as 1 dose of Benadryl. The patient is not having any difficulty with oxygenating. No acute distress at this time. She does need to follow her blood sugars in the light of current infection and the steroid dosage. A humidifier may prove beneficial. Motrin may also prove beneficial over the next couple of days to help reduce inflammation. ER warnings are given. Follow-up with primary care doctor as routine.
[2020-01-09] MEDS: levoFLOXacin 500 MG TAB PO ONE (09:23)
[2020-01-09 09:56] VITALS: BP 140/80; TEMP 96.9; O2SAT 99
== END 2020-01-09 09:44 | disposition home or self-care (01) ==
LOC: ER 07:53
DX: J02.0 Streptococcal pharyngitis (principal); K12.2 Cellulitis and abscess of mouth; J04.0 Acute laryngitis; E11.9 Type 2 diabetes mellitus without complications; Z88.6 Allergy status to analgesic agent

== ENCOUNTER → 2020-05-21 | Outpatient (CLI) | payer OTHER ==
--- NOTE | 2020-05-21 15:25 | US ---
US THYROID CLINICAL STATEMENT:54 years Female HYPERTHYROIDISM. No palpable mass, no prior thyroid surgery or therapy.. COMPARISON: None TECHNIQUE: Transcutaneous scanning, grayscale and Doppler modes. FINDINGS: Size right thyroid lobe: 4.4 x 1.7 x 1.0 cm Size left thyroid lobe: 4.7 x 1.7 x 1.5 cm Size isthmus: 0.3 cm Estimated total number of nodules greater than or equal to 1 cm: None.. No cysts, no dominant solid mass, no fluid collection. Homogeneous lobes. No abnormal vascularity. Soft tissue around the thyroid gland is negative. IMPRESSION: 1. No abnormal nodules in the thyroid gland. 2. Soft tissue around the thyroid gland is unremarkable. *ACR TI-RADS 2017 Recommendations for imaging follow-up of nodules: TR1: No FNA or follow up TR2: No FNA or follow up TR3: FNA if >/= 2.5 cm, follow up if 1.5 - 2.4 cm in 1, 3, and 5 years TR4: FNA if >/= 1.5 cm, follow up if 1.0 - 1.4 cm in 1, 2, 3, and 5 years TR5: FNA if >/= 1.0 cm, follow up if 0.5 - 0.9 cm every year for 5 years ACR TI-RADS recommends that no more than two nodules with the highest ACR TI-RADS total point should be biopsied and no more than four nodules should be followed. These recommendations do not apply to patients with increased risk for thyroid cancer or patients with symptomatic thyroid disease. Electronically signed by: Edwin Quinones MD 05/21/2020 3:24 PM CDT
== END ==
LOC: LAB.O 10:38
PROVIDERS: ATTEND Internal Medicine Endocrinology, Diabetes & Metabolism
DX: E05.90 Thyrotoxicosis, unspecified without thyrotoxic crisis or storm (principal); E04.1 Nontoxic single thyroid nodule; E04.9 Nontoxic goiter, unspecified; E11.9 Type 2 diabetes mellitus without complications; Z79.899 Other long term (current) drug therapy